=== PATIENT | female | born 1955 | race Caucasian/White ===

== ENCOUNTER 2019-03-28 20:47 | Emergency (ER) | payer BC ==
[~2019-03-28] VITALS: Ht 160 cm; Wt 68.0 kg
[~2019-03-28 20:47] MED LIST: AMITRIPTYLINE H25 MG PO; PANTOPRAZOLE SO40 M1 PO; PAXIL30 MG PO; TEGRETOL200 MG PO
[2019-03-28 20:50] VITALS: Ht 160 cm; Wt 68.0 kg
[2019-03-28 22:29] VITALS: BP 131/82
== END 2019-03-28 22:29 | disposition home or self-care (01) ==
LOC: ED 20:47
DX: H43.392 Other vitreous opacities, left eye (principal); R51 Headache; G43.909 Migraine, unspecified, not intractable, without status migrainosus; F32.9 Major depressive disorder, single episode, unspecified; Z90.49 Acquired absence of other specified parts of digestive tract; Z98.890 Other specified postprocedural states